=== PATIENT | female | born 1955 | race Caucasian/White ===

== ENCOUNTER 2019-11-24 18:06 | Inpatient (IN) | payer MEDICARE, OTHER ==
[~2019-11-24] VITALS: Ht 165.1 cm; Wt 82.1 kg
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
[2019-11-24 18:23] LABS: BASOPHILS % (AUTO) 0.4 % (0.0-2.0); EOSINOPHILS # (AUTO) 0.1 K/uL (0.0-0.7); EOSINOPHILS % (AUTO) 2.2 % (0.0-7.0); HEMATOCRIT 38.4 % (31.2-41.9); LYMPHOCYTES # (AUTO) 1.4 K/uL (20.0-40.0); MEAN CORPUSCULAR HGB CONC 34 g/dL (32.3-35.6); MEAN CORPUSCULAR VOLUME 97.9 fL (75.5-95.3); MONOCYTES # (AUTO) 0.4 K/uL (2.0-10.0); MONOCYTES % (AUTO) 6.3 % (0.0-11.0); NEUTROPHILS # (AUTO) 4.5 K/uL (1.8-8.9); NEUTROPHILS % (AUTO) 69.1 % (38.5-71.5); PLATELET COUNT (AUTO) 185 K/uL (179-408); RED BLOOD CELL COUNT(AUTO) 3.92 MIL/uL (3.63-4.92); WHITE BLOOD COUNT (AUTO) 6.5 K/uL (3.8-11.8)
[2019-11-24 18:33] LABS: CARBON DIOXIDE 24 mmol/L (21-32); CHLORIDE 105 mmol/L (98-107); CREATININE 0.9 mg/dL (0.6-1.3); GLUCOSE 98 mg/dL (74-106); POTASSIUM 3.7 mmol/L (3.5-5.1); UREA NITROGEN, BLOOD 21 mg/dL (7-18)
[2019-11-24 18:38] LABS: ALANINE AMINOTRANSFERASE 42 U/L (14-59); ALKALINE PHOSPHATASE 72 U/L (50-136); ASPARTATE AMINOTRANSFERASE 26 U/L (15-37); BILIRUBIN,DIRECT 0.2 mg/dL (0.0-0.2); BILIRUBIN,TOTAL 0.6 mg/dL (0.2-1.0)
[2019-11-24] MEDS ORDERED: BLOO-140 IN (18:39)
[2019-11-24] MEDS ORDERED: FLUO20CA40 PO (18:39)
[2019-11-24] MEDS ORDERED: ZOLP10TA6 PO (18:39)
[2019-11-24] MEDS ORDERED: RISP1TAB27 PO (18:39)
[2019-11-24] MEDS ORDERED: BUDE10.22 IH (18:39)
[2019-11-24] MEDS ORDERED: ATOR40TA PO (18:39)
[2019-11-24] MEDS ORDERED: ALBU18HF2 IH (18:39)
[2019-11-24] MEDS ORDERED: METF-440 PO (18:39)
[2019-11-24] MEDS ORDERED: CLON1TAB12 PO (18:39)
[2019-11-24] MEDS ORDERED: IBUP-1955 PO (18:39)
--- NOTE | 2019-11-24 18:39 | NUR ---
Patient transported to CT in stable condition.
[2019-11-24 18:40] LABS: ACETAMINOPHEN < 2.0 ug/mL (10-30); ETHANOL < 3 MG/DL (0-0)
[2019-11-24 18:44] LABS: *BILIRUBIN,URIN NEGATIVE (NEGATIVE); *BLOOD, URINE NEGATIVE (NEGATIVE); *COLOR,URINE YELLOW (YELLOW); *KETONES,URINE NEGATIVE (NEGATIVE); *UROBILINOGEN,URINE 0.2 E.U./dl (NORMAL); LEUKOCYTE ESTERASE ,URINE NEGATIVE (NEGATIVE); NITRITE, URINE NEGATIVE (NEGATIVE); PH,URINE 5.5 (5.0-8.0); UGLUCOSE NEGATIVE (NEGATIVE)
--- NOTE | 2019-11-24 18:47 | NUR ---
Patient back in room from CT
[2019-11-24 18:49] LABS: *CLARITY,URINE SLIGHTLY HAZY (CLEAR); SQUAMOUS EPITHELIAL CELL,UR MODERATE /HPF (NONE SEEN); WBC,URINE 0-3 /HPF (0-3)
[2019-11-24 18:49] LABS: THYROID STIMULATING HORMONE 2.355 mIU/mL (0.358-3.740)
[2019-11-24 18:53] LABS: *AMPHETAMINE, URINE NEGATIVE (NEGATIVE); *BARBITURATE, URINE NEGATIVE (NEGATIVE); *CANNABINOID, URINE NEGATIVE (NEGATIVE); *COCCAINE, URINE NEGATIVE (NEGATIVE); *OPIATE, URINE NEGATIVE (NEGATIVE); *PHENCYCLIDINE SCREEN,URINE NEGATIVE (NEGATIVE)
--- NOTE | 2019-11-24 19:03 | NUR ---
DULCE, crisis team contacted. ETA 1-1/2 hour.
[2019-11-24] MEDS ORDERED: ACETAMINOPHEN ES 500 MG TABLET ONE (19:08)
--- NOTE | 2019-11-24 19:10 | NUR ---
Report given to BRIA Reyez
--- NOTE | 2019-11-24 19:10 | NUR ---
RECEIVED HAND OFF AND SBAR FROM OUTGOING DAY SHIFT RN (ISAÍAS) STATES PT IS WAITING FOR CRISIS PRODUCT SAFETY AND STANDARDS ENGINEER (DULCE) ETA 1-1.5HR MD AT BEDSIDE FOR UPDATE MEDICALLY CLEARED PT ABLE TO TOLERATE PO MEDS ORDERED PT AOX4 W/ EPISODES OF CONFUSION (STATES: IS MY MOTHER COMING? I AM AT HOME ?) PT REORIENTED, KEPT WARM CALM AND COMFORTABLE, DIMMED LIGHTS PT COMPLIANT, CURRENTLY DENIES SI/HI AT THIS TIME MONITORED ACCORDINGLY SIDE RAILSX2 UP BED AT LOWEST POSITION
[2019-11-24] MEDS ORDERED: ACETAMINOPHEN ES 500 MG TABLET PO ONE (19:15)
--- NOTE | 2019-11-24 20:44 | NUR ---
CRISIS MULTIPLEX OPERATOR AT BEDSIDE (DULCE)
--- NOTE | 2019-11-24 20:49 | NUR ---
CALL FOR BED DONE U 138A ALFRED FRASER
--- NOTE | 2019-11-24 22:13 | NUR ---
[address] (gd) Dr Pritchett
--- NOTE | 2019-11-24 22:30 | NUR ---
HAND OFF AND SBAR GIVEN TO ALFRED RN PT TO ADMIT TO [facility] RM 138A [address] ALLEN ALL BELONGINGS ACCOUNTED FOR
[2019-11-24] MEDS ORDERED: BLOOD SUGAR DIAGNOSTIC 1 EACH STRIP VI ONE (22:45)
[2019-11-24] MEDS ORDERED: MAG HYDROX/AL HYDROX/SIMETH 30 ML LIQUID UDC PO PRN (22:45)
[2019-11-24] MEDS ORDERED: MAGNESIUM HYDROXIDE 30 ML LIQUID UDC PO PRN (22:45)
[2019-11-24] MEDS ORDERED: LORAZEPAM 0.5 MG TABLET PO PRN (22:45)
--- NOTE | 2019-11-24 22:53 | NUR ---
Epic called regarding medication reconciliation, Silas paged, awaiting call back.
--- NOTE | 2019-11-24 23:12 | NUR ---
TRANSPORTED TO [facility] VIA WHEELCHAIR ACCOMPANIED BY CARDIAC TECH PT CONFUSED AND UNABLE TO STATE WHERE SHE IS. ABLE TO SAY FIRST NAME AND BIRTHDAY WITH DIFFERENT LAST NAME REORIENTED CALM AND PLEASANT
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
[2019-11-25 01:00] VITALS: BP 121/43
[2019-11-25 02:01] VITALS: BP 121/43
[2019-11-25] MEDS: ACETAMINOPHEN 325 MG TABLET PO PRN ×2 (03:33→23:58)
--- NOTE | 2019-11-25 06:45 | NUR ---
PATIENT SLEPT FOR APPROX. 5.45 HRS THROUGH THE NIGHT. NO AGGRESSIVE/COMBATIVE BX. NOTED DURING THE SHIFT. WILL CONTINUE TO MONITOR.
[2019-11-25 07:30] VITALS: BP 101/50
[2019-11-25] MEDS ORDERED: ALBUTEROL SULFATE 8 GM HFA.AER.AD IH PRN (11:15)
[2019-11-25] MEDS: SERTRALINE HCL 50 MG TABLET PO SCH (11:19)
[2019-11-25] MEDS: METFORMIN HCL 500 MG TABLET PO SCH (12:00)
[2019-11-25] MEDS ORDERED: ALBUTEROL SULFATE 2.5 MG/3 ML NEBU NEB PRN (12:00)
[2019-11-25 15:37] VITALS: BP 91/50
[2019-11-25] MEDS: risperiDONE 1 MG TABLET PO SCH (16:14)
[2019-11-25] MEDS ORDERED: IBUPROFEN 600 MG TABLET PO PRN (17:00)
[2019-11-25] MEDS: ATORVASTATIN 40 MG TABLET PO SCH (20:17)
[2019-11-25 20:21] VITALS: BP 118/50
[2019-11-25] MEDS: ZOLPIDEM 5 MG TABLET PO PRN (23:59)
[2019-11-26 07:48] VITALS: BP 114/53
[2019-11-26] MEDS: SERTRALINE HCL 50 MG TABLET PO SCH (08:47)
[2019-11-26] MEDS: METFORMIN HCL 500 MG TABLET PO SCH (08:47)
[2019-11-26] MEDS: risperiDONE 1 MG TABLET PO SCH (08:47)
[2019-11-26] MEDS: FLUTICASONE/VILANTEROL 1 EACH BLST.W.DEV INH SCH (08:49)
--- NOTE | 2019-11-26 11:21 | NUR ---
Social Work Note/Initial Discharge Note: Patient currently resides at [facility] [address], [place] [address]; ([phone]) and would like to go back. Per patients chantelle Montgomery ([phone]) is agreeable with placement upon discharge. upkeep worker spoke to admin coordinator [facility] ([phone]) who stated that patient is welcomed back upon discharge. SW will work with the patient and the MD regarding appropriate discharge planning. SW will form a safe and proper discharge.
--- NOTE | 2019-11-26 11:22 | NUR ---
Social Work Note/Family Contact: fat pressroom worker spoke to patients chantelle Montgomery ([phone]) and was able to gather collateral. Patients chantelle Ivan's phone number on the facesheet is wrong and the correct number is ([phone]) and was unable to leave a voicemail due to mailbox being full. fat pressroom worker will follow up. Patients sister Alena Mcdonald number is ([phone]) ([phone]) and left a voicemail. fat pressroom worker will follow up.
--- NOTE | 2019-11-26 11:55 | NUR ---
Gps/Cleaner Window- Had been cooperative with staff, compliant with her routine medications , no agitation noted.Encouraged to attend and participate in her group tx.
[2019-11-26] MEDS ORDERED: DEXTROSE 50% 50 ML DISP.SYRIN IV PRN (14:15)
[2019-11-26] MEDS: risperiDONE 2 MG TABLET PO SCH (16:37)
[2019-11-26] MEDS ORDERED: risperiDONE 1 MG TABLET PO SCH (17:00)
[2019-11-26 20:02] VITALS: BP 114/53
[2019-11-26] MEDS: ATORVASTATIN 40 MG TABLET PO SCH ×2 (20:15→20:25)
[2019-11-27] MEDS: ZOLPIDEM 5 MG TABLET PO PRN (01:03)
[2019-11-27] MEDS: BLOOD SUGAR DIAGNOSTIC 1 EACH STRIP VI SCH (06:33)
[2019-11-27 07:30] VITALS: BP 112/54
[2019-11-27] MEDS: FLUTICASONE/VILANTEROL 1 EACH BLST.W.DEV INH SCH (08:11)
[2019-11-27] MEDS: risperiDONE 2 MG TABLET PO SCH ×2 (08:11→16:41)
[2019-11-27] MEDS: SERTRALINE HCL 50 MG TABLET PO SCH (08:11)
[2019-11-27] MEDS: METFORMIN HCL 500 MG TABLET PO SCH (08:11)
--- NOTE | 2019-11-27 13:00 | NUR ---
Gps/Clinical Informatics Specialist Noted patient going to room 141-B, giving part of her food to the patient, discouraged patient from doing so. Patient getting friendly with the male patient. Monitor behavior, discouraged patient from going into other patient's room, verbalized understanding.
--- NOTE | 2019-11-27 15:06 | NUR ---
Social Work Note/Individual Therapy Notes: aniline press worker followed up with patient and she was calm and cooperative. Patient is pleasant upon approach. aniline press worker provided emotional support and brief counseling.
[2019-11-27] MEDS: ACETAMINOPHEN 325 MG TABLET PO PRN (15:14)
[2019-11-27 16:35] VITALS: BP 102/51
[2019-11-27] MEDS: ATORVASTATIN 40 MG TABLET PO SCH (20:01)
[2019-11-27 20:09] VITALS: BP 117/53
[2019-11-28] MEDS: ZOLPIDEM 5 MG TABLET PO PRN ×2 (01:15→23:06)
[2019-11-28] MEDS: BLOOD SUGAR DIAGNOSTIC 1 EACH STRIP VI SCH (06:46)
[2019-11-28 07:30] VITALS: BP 151/55
[2019-11-28] MEDS: FLUTICASONE/VILANTEROL 1 EACH BLST.W.DEV INH SCH (08:20)
[2019-11-28] MEDS: SERTRALINE HCL 50 MG TABLET PO SCH (08:20)
[2019-11-28] MEDS: METFORMIN HCL 500 MG TABLET PO SCH (08:20)
[2019-11-28] MEDS: risperiDONE 2 MG TABLET PO SCH ×2 (08:20→16:34)
[2019-11-28 16:00] VITALS: BP 129/66
--- NOTE | 2019-11-28 16:00 | NUR ---
Gps/Travel Pt- Patient's son in to visit, wants to speak to the Social Workers, encouraged to call saturday for any specific questions.Per son patient remains with forgetfulness, and confusions.Informed had been redirectable, medication compliance noted,.Couple times noted patient talking to herself.
[2019-11-28 20:00] VITALS: BP 126/83
[2019-11-28] MEDS: ATORVASTATIN 40 MG TABLET PO SCH (20:44)
--- NOTE | 2019-11-28 23:43 | NUR ---
GPS/NSG-PHARMACY [facility] LOT#[id number]
[2019-11-29] MEDS: BLOOD SUGAR DIAGNOSTIC 1 EACH STRIP VI SCH (07:05)
[2019-11-29 07:30] VITALS: BP 117/49
[2019-11-29] MEDS: METFORMIN HCL 500 MG TABLET PO SCH (09:03)
[2019-11-29] MEDS: SERTRALINE HCL 50 MG TABLET PO SCH (09:03)
[2019-11-29] MEDS: risperiDONE 2 MG TABLET PO SCH ×2 (09:03→17:04)
[2019-11-29] MEDS: FLUTICASONE/VILANTEROL 1 EACH BLST.W.DEV INH SCH (09:06)
[2019-11-29 16:08] VITALS: BP 103/51
[2019-11-29 20:00] VITALS: BP 105/47
[2019-11-29] MEDS: ATORVASTATIN 40 MG TABLET PO SCH (20:38)
[2019-11-30] MEDS: BLOOD SUGAR DIAGNOSTIC 1 EACH STRIP VI SCH (06:48)
[2019-11-30 07:30] VITALS: BP 95/50
[2019-11-30] MEDS: METFORMIN HCL 500 MG TABLET PO SCH (08:06)
[2019-11-30] MEDS: FLUTICASONE/VILANTEROL 1 EACH BLST.W.DEV INH SCH (08:15)
[2019-11-30] MEDS: risperiDONE 2 MG TABLET PO SCH ×2 (08:15→16:17)
[2019-11-30] MEDS: SERTRALINE HCL 50 MG TABLET PO SCH (08:16)
--- NOTE | 2019-11-30 09:20 | NUR ---
Received patient awake and alert in her assigned bed. Bed is locked, low position. Patient is ambulatory and independent in ADLs and self care. Patient educated about communicating her needs to staff appropriately. Will continue to monitor.
[2019-11-30 16:26] VITALS: BP 120/56
[2019-11-30 20:07] VITALS: BP 118/62
[2019-11-30] MEDS: ATORVASTATIN 40 MG TABLET PO SCH (20:08)
[2019-12-01] MEDS: BLOOD SUGAR DIAGNOSTIC 1 EACH STRIP VI SCH (06:46)
[2019-12-01 07:54] VITALS: BP 105/50
[2019-12-01] MEDS: FLUTICASONE/VILANTEROL 1 EACH BLST.W.DEV INH SCH (08:03)
[2019-12-01] MEDS: risperiDONE 2 MG TABLET PO SCH ×2 (08:03→16:34)
[2019-12-01] MEDS: METFORMIN HCL 500 MG TABLET PO SCH (08:03)
[2019-12-01] MEDS: SERTRALINE HCL 50 MG TABLET PO SCH (08:04)
--- NOTE | 2019-12-01 14:40 | NUR ---
Social Work Note/Family Contact: odd bundle worker spoke with patients chantelle Montgomery ([phone]) and updated on patients status.
--- NOTE | 2019-12-01 14:41 | NUR ---
Social Work Note/PC Hearing Notification: pit crew support worker contacted patients chantelle Montgomery, ([phone]) and notified patients probable cause of hearing today.
[2019-12-01 16:49] VITALS: BP 107/52
--- NOTE | 2019-12-01 17:47 | NUR ---
gps:received patient Aox2-3, compliant with medication, denies Pain, denies SI and HI, calm and cooperative
[2019-12-01] MEDS ORDERED: GUAIFENESIN/CODEINE 5 ML LIQUID UDC PO PRN (18:00)
[2019-12-01 19:30] VITALS: BP 132/42
[2019-12-01] MEDS: ATORVASTATIN 40 MG TABLET PO SCH (20:03)
[2019-12-01] MEDS: ZOLPIDEM 5 MG TABLET PO PRN (22:56)
[2019-12-02] MEDS: BLOOD SUGAR DIAGNOSTIC 1 EACH STRIP VI SCH (06:50)
[2019-12-02 07:30] VITALS: BP 119/53
[2019-12-02] MEDS: risperiDONE 2 MG TABLET PO SCH ×2 (08:24→16:04)
[2019-12-02] MEDS: METFORMIN HCL 500 MG TABLET PO SCH (08:24)
[2019-12-02] MEDS: SERTRALINE HCL 50 MG TABLET PO SCH (08:24)
[2019-12-02] MEDS: FLUTICASONE/VILANTEROL 1 EACH BLST.W.DEV INH SCH (08:25)
--- NOTE | 2019-12-02 08:30 | NUR ---
Social Work Note/Coordination of Care: production utility worker faxed to [facility] from [facility] ([phone]) (F:[phone]) patients pyschiatric H & P notes and progress notes.
--- NOTE | 2019-12-02 10:06 | NUR ---
Social Work Note/Family Contact: skip pit worker contacted patients chantelle Montgomery ([phone]) and stated that patient will be discharged 12/03/2019 and updated on patients statua.
--- NOTE | 2019-12-02 10:07 | NUR ---
Social Work Note/Coordination of Care: ironworker helper shop spoke with María from [facility] ([phone]) and stated that patient will be discharged 12/03/19 and they will accept patient back.
[2019-12-02 15:14] VITALS: BP 96/45
[2019-12-02] MEDS: ATORVASTATIN 40 MG TABLET PO SCH (20:04)
[2019-12-02 20:06] VITALS: BP 117/49
[2019-12-03] MEDS: BLOOD SUGAR DIAGNOSTIC 1 EACH STRIP VI SCH (06:38)
[2019-12-03 07:30] VITALS: BP 105/49
--- NOTE | 2019-12-03 08:08 | NUR ---
Social Work Note/Discharge: Patient will be discharged back to [facility] [address] [place] [address]; ([phone]). Still Runner spoke with [facility] admin coordinator ([phone]) at the facility who states they are ready to accept the patient back today. Patient is aware and agreeable with discharge plans. Patients chantelle Montgomery, ([phone]) is aware and agreeable with discharge plans. Patient is aware and agreeable with discharge plans. Patient is alert and oriented x2, is not able to plan for self-care, and denies any suicidal or homicidal ideations. Patient will follow up with Dr. Wright (remanufacturing technician) and Dr. Chase (psychiatrist). Patient will follow up with her doctors at the facility. Patient was provided with outpatient mental health resources to [facility] Crisis [facility] , and the [place] Suicide Prevention Lifeline . Patient presents with euthymic mood and congruent affect. Addendum: 12/03/19 at 0808 by CHARLES BENDER Social Work Note/Discharge: Patient will be discharged back to [facility] [address] [place] [address]; ([phone]) via ambulance at 12PM. Still Runner spoke with [facility] admin coordinator ([phone]) at the facility who states they are ready to accept the patient back today. Patient is aware and agreeable with discharge plans. Patients chantelle Montgomery, ([phone]) is aware and agreeable with discharge plans. Patient is aware and agreeable with discharge plans. Patient is alert and oriented x2, is not able to plan for self-care, and denies any suicidal or homicidal ideations. Patient will follow up with Dr. Wright (remanufacturing technician) and Dr. Chase (psychiatrist). Patient will follow up with her doctors at the facility. Patient was provided with outpatient mental health resources to [facility] , and the [place] Suicide Prevention Lifeline . Patient presents with euthymic mood and congruent affect. Addendum: 12/03/19 at 0815 by CHARLES BENDER Social Work Note/Discharge: Patient will be discharged back to [facility] [address] [place] [address]; ([phone]) via family crab picker by chantelle Montgomery at 1PM. Still Runner spoke with [facility] admin coordinator ([phone]) at the facility who states they are ready to accept the patient back today. Patient is aware and agreeable with discharge plans. Patients chantelle Montgomery, ([phone]) is aware and agreeable with discharge plans. Patient is aware and agreeable with discharge plans. Patient is alert and oriented x2, is not able to plan for self-care, and denies any suicidal or homicidal ideations. Patient will follow up with Dr. Wright (remanufacturing technician) and Dr. Chase (psychiatrist). Patient will follow up with her doctors at the facility. Patient was provided with outpatient mental health resources to [facility] , and the National Suicide Prevention Lifeline . Patient presents with euthymic mood and congruent affect.
--- NOTE | 2019-12-03 08:09 | NUR ---
Social Work Note/Firearms Report: Pile Driving Setter completed and submitted a [employer] firearms report for 5250 grave disability certification. A copy of report has been placed in patient chart.
[2019-12-03] MEDS: METFORMIN HCL 500 MG TABLET PO SCH (09:35)
[2019-12-03] MEDS: SERTRALINE HCL 50 MG TABLET PO SCH (09:36)
[2019-12-03] MEDS: risperiDONE 2 MG TABLET PO SCH (09:38)
[2019-12-03] MEDS: FLUTICASONE/VILANTEROL 1 EACH BLST.W.DEV INH SCH (09:39)
== END 2019-12-03 13:45 | DRG 885 ==
LOC: ER 18:06 → GPS 22:36
PROVIDERS: ADMIT Psychiatry & Neurology Psychiatry; ATTEND Nurse Practitioner Acute Care
DX: F25.1 Schizoaffective disorder, depressive type (principal); E11.65 Type 2 diabetes mellitus with hyperglycemia; F03.91 Unspecified dementia, unspecified severity, with behavioral disturbance; E78.5 Hyperlipidemia, unspecified; J44.9 Chronic obstructive pulmonary disease, unspecified; Z79.51 Long term (current) use of inhaled steroids; Z79.4 Long term (current) use of insulin; Z86.73 Personal history of transient ischemic attack (TIA), and cerebral infarction without residual deficits
CPT/HCPCS: 36415; 70030-TC; 70450; 71045; 80307; 84443; 85025; 93005; A4663; A9150; G0480; G0480-TC